=== PATIENT | female | born 1930 | race Caucasian/White ===

== ENCOUNTER 2017-07-22 18:23 | Emergency (ER) | payer OTHER ==
[~2017-07-22] VITALS: Ht 152.4 cm; Wt 60.3 kg
[~2017-07-22 18:23] MED LIST: ASPIR 8181 MG PO; LIPITOR40 MG PO; NORVASC5 MG PO; TOPROL XL50 MG PO; ZESTRIL30 MG PO
[2017-07-23] MEDS ORDERED: TESSALON PERLE100 M1 PO (13:08)
[2017-07-23] MEDS ORDERED: SYMBICORT 80/10.2 GM IH (13:08)
[2017-07-23] MEDS ORDERED: DOXYCYCLINE HY100 MG PO (13:08)
== END 2017-07-23 13:57 | disposition home or self-care (01) ==
LOC: ER 18:23 → EDBD 18:43 → ER 18:43
DX: J22 Unspecified acute lower respiratory infection (principal); J11.1 Influenza due to unidentified influenza virus with other respiratory manifestations